=== PATIENT | female | born 1990 | race Caucasian/White ===

== ENCOUNTER 2017-02-07 09:28 | Emergency (ER) | payer BC, OTHER ==
[2017-02-07] MEDS ORDERED: Ketorolac 30 MG/ML SDV IM ONE (09:42)
--- NOTE | 2017-02-07 09:49 | EDM.PDOC ---
ED HPI GENERAL MEDICAL PROBLEM - General Chief Complaint: Lower Extremity Injury/Pain Stated Complaint: [id number] LEG PAIN LEFT BUMP Time Seen by Provider: 02/07/17 09:42 Source of Information: Reports: Patient, RN Notes Reviewed History Limitations: Reports: No Limitations - History of Present Illness INITIAL COMMENTS - FREE TEXT/NARRATIVE: she has a 26-year-old morbidly obese female who presents with left leg pain she states that it started 3-4 days ago and has gradually gotten worse. She states the pain is dull aching when she is sitting and with movement becomes sharp it starts in the left groin and radiates down the leg. She denies any injury she denies any fever or chills nausea or vomiting she denies the use of control or any recent long trips she rates her pain as 7/10 she has not taken anything for discomfort prior to arrival. She denies prior DVT Quality: Reports: Sharp Severity: Moderate Improves with: Reports: Rest Worsens with: Reports: Movement Left Upper Leg Pain Score (Numeric/FACES): 7 - Related Data Allergies Allergy/AdvReac Type Severity Reaction Status Date / Time cephalexin [From Keflex] Allergy Hives Verified 02/07/17 09:49 codeine Allergy Chills Verified 02/07/17 09:49 Penicillins Allergy Hives Verified 02/07/17 09:49 Home Meds: Home Meds . [No Known Home Meds] 02/07/17 [History] Review of Systems - Review of Systems Review Of Systems: ROS reveals no pertinent complaints other than HPI. Trauma Exam - Physical Exam Exam: See Below Exam Limited By: No Limitations General Appearance: Reports: Anxious, Other (tearful on exam) Head: Reports: Atraumatic, Normocephalic Respiratory Exam: Reports: No Respiratory Distress, Lungs Clear, Normal Breath Sounds Cardiovascular: Reports: Normal Peripheral Pulses, No Edema, No Gallop, No JVD, No Murmur, No Rub, Tachycardia GI/Abdominal: Reports: Normal Bowel Sounds, Soft, Non-Tender, No Organomegaly, No Distention, No Abnormal Bruit, No Mass Skin: Reports: Warm/Dry, Other (there is a small quarter size area of a healing abscess on the left upper inner thigh. There is no surrounding erythema induration fluctuance or drainage noted) Course - Vital Signs Last Recorded V/S: Last Vital Signs Temp 99 F 05/31/17 09:41 Pulse 144 H 02/07/17 09:41 Resp 16 02/07/17 09:41 BP 135/87 02/07/17 09:41 Pulse Ox 99 02/07/17 09:41 - Orders/Labs/Meds Orders: Active Orders 24 hr Category Date Time Status Venous Doppler Lwr Ext Lt [US] Urgent Exams 02/07/17 09:41 Ordered BASIC METABOLIC PANEL,BMP [CHEM] Stat Lab 02/07/17 11:21 Ordered CBC WITH AUTO DIFF [HEME] Stat Lab 02/07/17 11:21 Ordered CULTURE BLOOD [BC] Stat Lab 02/07/17 11:21 Ordered CULTURE BLOOD [BC] Stat Lab 02/07/17 11:21 Ordered Blood Culture x2 Reflex Set [OM.PC] Stat Oth 02/07/17 11:21 Ordered Meds: Medications Discontinued Medications Generic Name Dose Route Start Last Admin Trade Name Freq PRN Reason Stop Dose Admin Hydrocodone Bitart/Acetaminophen 1 tab 02/07/17 10:50 02/07/17 10:55 [place] 325-10 Mg PO 02/07/17 10:51 1 tab ONETIME ONE Administration Ketorolac Tromethamine 60 mg 02/07/17 09:42 02/07/17 09:57 Toradol IM 02/07/17 09:43 60 mg ONETIME ONE Administration - Radiology Interpretation Free Text/Narrative:: Doppler of the left lower leg was examined patient was given Toradol 60 mg IM for pain - Re-Assessments/Exams Free Text/Narrative Re-Assessment/Exam: 02/07/17 11:21 Patient had doppler of the left lower extremity which was negative for DVT and abscess- there were many inguinal nodes present. Patient made aware and will have cbc/ cmp/ blood cultures taken- patient given crutches for comfort and diclofenac for discomfort and told tfollowup with primary care in the next 3-5 days for reevaluation. Patient was not discharged Departure - Departure Time of Disposition: 11:27 Disposition: Home, Self-Care 01 Condition: good Clinical Impression: Lymphadenitis, acute, Left leg pain - Discharge Information Instructions: Lymphadenopathy Forms: ED Department Discharge Additional Instructions: discharge diagnoses Lymphadenopathy Leg pain Take antibiotics until gone Use crutches for comfort Follow up with the Clinic on Sunday and Return for increased pain/ fever or worsening symptoms. - My Orders Last 24 Hours: My Active Orders 02/07/17 09:41 Venous Doppler Lwr Ext Lt [US] Urgent 02/07/17 11:21 BASIC METABOLIC PANEL,BMP [CHEM] Stat CBC WITH AUTO DIFF [HEME] Stat CULTURE BLOOD [BC] Stat CULTURE BLOOD [BC] Stat Blood Culture x2 Reflex Set [OM.PC] Stat - Assessment/Plan Last 24 Hours: My Active Orders 02/07/17 09:41 Venous Doppler Lwr Ext Lt [US] Urgent 02/07/17 11:21 BASIC METABOLIC PANEL,BMP [CHEM] Stat CBC WITH AUTO DIFF [HEME] Stat CULTURE BLOOD [BC] Stat CULTURE BLOOD [BC] Stat Blood Culture x2 Reflex Set [OM.PC] Stat
[2017-02-07] MEDS ORDERED: Acetaminophen/HYDROcodone 325-10 MG Tab PO ONE (10:50)
[2017-02-07 11:31] VITALS: BP 107/63
--- NOTE | 2017-02-07 11:49 | US ---
CLINICAL HISTORY: 26-year-old morbidly obese female with upper left leg pain. Rule out DVT. INTERPRETATION: Technically "difficult" but negative examination, i.e., no current evidence deep vein thrombosis le ft groin, thigh or knee and the deep veins in the proximal left calf are patent (normal augmentation venous waveform). Multiple lymph nodes identified in the left groin. No sign of intraluminal thrombus and normal compressibility deep veins of the left groin, thigh and knee with satisfactory augmentation and venous waveforms demonstrated respectively in the left popli teal, superficial and common femoral veins proximally. No sign of Brock cyst behind the left knee. CONCLUSION: Lymphadenopathy left groin. No current evidence DVT left lower extremity.
[2017-02-07 12:06] LABS: CHLORIDE,CL 104 mmol/L (101-111); SODIUM,NA 135 mmol/L (135-145)
== END 2017-02-07 11:55 | disposition home or self-care (01) ==
LOC: DL.ED 09:28
DX: L04.3 Acute lymphadenitis of lower limb (principal); Z88.8 Allergy status to other drugs, medicaments and biological substances; Z88.5 Allergy status to narcotic agent; Z88.0 Allergy status to penicillin
CPT/HCPCS: 36415; 80048; 85025; 87040; 93971; 96372; 99284; A9270; J1885

== ENCOUNTER 2017-02-08 04:44 | Inpatient (IN) | payer OTHER ==
[2017-02-08] MEDS ORDERED: Sodium Chloride 0.9% 1,000 ML IV ONE (05:12)
[2017-02-08] MEDS ORDERED: Acetaminophen 325 MG Tab PO ONE (05:35)
[2017-02-08 05:36] LABS: CHLORIDE,CL 100 mmol/L (101-111); SODIUM,NA 133 mmol/L (135-145)
[2017-02-08] MEDS ORDERED: diphenhydrAMINE 25 MG Tab PO ONE (05:36)
[2017-02-08] MEDS ORDERED: Acetaminophen/HYDROcodone 325-10 MG Tab PO ONE (05:36)
[2017-02-08] MEDS ORDERED: Ondansetron 4 MG/2 ML SDV IV ONE (05:37)
[2017-02-08] MEDS ORDERED: Vancomycin 1.5 GM in Sodium Chloride 0.9% 500 ML IV ONE (05:37)
[2017-02-08] MEDS ORDERED: diphenhydrAMINE 50 MG/ML SDV IVPUSH ONE (05:41)
--- NOTE | 2017-02-08 05:49 | EDM.PDOC ---
ED HPI GENERAL MEDICAL PROBLEM - General Chief Complaint: Lower Extremity Injury/Pain Stated Complaint: LEG PAIN STILL PERSISTING Time Seen by Provider: 02/08/17 05:20 Source of Information: Reports: Patient History Limitations: Reports: No Limitations - History of Present Illness INITIAL COMMENTS - FREE TEXT/NARRATIVE: c/o lower left leg pain x 3 days with fever and chill. Patient seen in ED earlier today, LE ultrasound done to rule out DVT. None noted on report. Psoriatic patch left lower extremity since childhood, Stable in size until recently, increased redness, drainage this wallace. Pain in inside of leg increasing and red streaks noted from patch to knee. Temp 103 at home [employer]. Location: Reports: Lower Extremity, Left Left Upper Leg Pain Score (Numeric/FACES): 10 - Related Data Allergies Allergy/AdvReac Type Severity Reaction Status Date / Time cephalexin [From Keflex] Allergy Hives Verified 02/08/17 04:47 codeine Allergy Chills Verified 02/08/17 04:47 Penicillins Allergy Hives Verified 02/08/17 04:47 Home Meds: Home Meds Sulfamethoxazole/Trimethoprim [Bactrim Ds Tablet] 1 each PO ASDIRECTED 02/08/17 [History] Past Medical History HEENT History: Reports: None Cardiovascular History: Reports: None Respiratory History: Reports: None Gastrointestinal History: Reports: None Genitourinary History: Reports: None COUNSELLORS History: Reports: None Musculoskeletal History: Reports: None Neurological History: Reports: None Psychiatric History: Reports: None Endocrine/Metabolic History: Reports: None Hematologic History: Reports: None Immunologic History: Reports: None Oncologic (Cancer) History: Reports: None Dermatologic History: Reports: Psoriasis - Past Surgical History HEENT Surgical History: Reports: Other (See Below) Other HEENT Surgeries/Procedures: wisdom teeth Social & Family History - Tobacco Use Smoking Status *Q: Never Smoker - Caffeine Use Caffeine Use: Reports: None - Recreational Drug Use Recreational Drug Use: No Review of Systems - Review of Systems Review Of Systems: See Below Constitutional: Reports: Chills, Diaphoresis, Fever Eyes: Reports: No Symptoms Ears: Reports: No Symptoms Nose: Reports: No Symptoms Mouth/Throat: Reports: No Symptoms Respiratory: Reports: Shortness of Breath Cardiovascular: Reports: No Symptoms GI/Abdominal: Reports: Nausea Genitourinary: Reports: No Symptoms, Other (LMP 1 week ago) Musculoskeletal: Reports: Leg Pain (left ) Skin: Reports: Erythema, Wound, Change in Color, Lumps, Urticaria Neurological: Reports: No Symptoms ED EXAM, GENERAL - Physical Exam Exam: See Below Exam Limited By: No Limitations General Appearance: Alert, Anxious, Mild Distress Eye Exam: Bilateral Eye: EOMI, PERRL Ears: Normal External Exam Nose: Normal Inspection Throat/Mouth: Normal Inspection, Other (crusted lesion above mid upper lip) Head: Atraumatic, Normocephalic Neck: Normal Inspection, Full Range of Motion Respiratory/Chest: No Respiratory Distress Cardiovascular: Normal Peripheral Pulses, Regular Rate, Rhythm, Tachycardia GI/Abdominal: Normal Bowel Sounds, Soft, Non-Tender Extremities: Leg Pain (left greaterlower) Neurological: Alert, Oriented Skin Exam: Warm, Dry, Increased Warmth, Wound/Incision (6x7cm psoriatic patch with surrounding redness and warmth, central lesion raised tender, red streaking on medial leg to knee. tender with lymphadenopathy inner thigh and groin. helaing dermal cyst upper inner thigh). No: Normal Color Course - Vital Signs Last Recorded V/S: Last Vital Signs Temp 98.0 F 02/08/17 04:48 Pulse 119 H 02/08/17 05:06 Resp 18 02/08/17 05:06 BP 127/70 02/08/17 05:06 Pulse Ox 97 02/08/17 05:06 - Orders/Labs/Meds Orders: Active Orders 24 hr Category Date Time Status CULTURE WOUND [RM] Stat Lab 02/08/17 05:33 Received Vancomycin 1.5 gm Med 02/08/17 05:37 Active Sodium Chloride 0.9% [Normal Saline] 500 ml IV ONETIME Medication Orders Vancomycin HCl 1.5 gm/ Sodium (Chloride) 500 mls @ 334 mls/hr IV ONETIME ONE Stop: 02/08/17 07:06 Last Admin: 02/08/17 05:57 Dose: 334 mls/hr Labs: Laboratory Tests 02/08/17 02/08/17 02/08/17 Range/Units 05:11 05:11 05:11 WBC 16.7 H (5.0-10.0) 10^3/uL RBC 4.47 (4.2-5.4) 10^6/uL Hgb 12.3 (12.0-16.0) g/dL Hct 36.2 L (37.0-47.0) % MCV 81.0 (80-100) fL MCH 27.5 (27.0-34.0) pg MCHC 34.0 (33.0-35.0) g/dL Plt Count 244 (150-450) 10^3/uL Neut % (Auto) 92.3 H (42.2-75.2) % Lymph % (Auto) 4.1 L (20.5-50.1) % [place] % (Auto) 3.3 (2-8) % Eos % (Auto) 0.2 L (1.0-3.0) % Baso % (Auto) 0.1 (0.0-1.0) % Sodium 133 L (135-145) mmol/L Potassium 3.8 (3.6-5.0) mmol/L Chloride 100 L (101-111) mmol/L Carbon Dioxide 23.0 (21.0-31.0) mmol/L Anion Gap 13.8 BUN 15 (7-18) mg/dL Creatinine 1.1 (0.6-1.3) mg/dL Est Cr Clr Drug Dosing TNP Estimated GFR (MDRD) > 60 BUN/Creatinine Ratio 13.63 Glucose 128 H (74-105) mg/dL Lactic Acid 1.0 (0.5-2.2) mmol/L Calcium 9.3 (8.4-10.2) mg/dl Total Bilirubin 0.8 (0.2-1.0) mg/dL AST 26 (10-42) IU/L ALT 23 (10-60) IU/L Alkaline Phosphatase 49 (42-121) IU/L Total Protein 7.6 (6.7-8.2) g/dl Albumin 4.1 (3.2-5.5) g/dl Globulin 3.5 Albumin/Globulin Ratio 1.17 Meds: Medications Generic Name Dose Route Start Last Admin Trade Name Freq PRN Reason Stop Dose Admin Vancomycin HCl 1.5 gm/ Sodium 500 mls @ 334 mls/hr 02/08/17 05:37 02/08/17 05 :57 Chloride IV 02/08/17 07:06 334 mls/hr ONETIME ONE Administration Discontinued Medications Generic Name Dose Route Start Last Admin Trade Name Freq PRN Reason Stop Dose Admin Acetaminophen 325 mg 02/08/17 05:35 02/08/17 05:59 Tylenol PO 02/08/17 05:36 325 mg NOW ONE Administration Hydrocodone Bitart/Acetaminophen 1 tab 02/08/17 05:36 02/08/17 05:59 [place] 325-10 Mg PO 02/08/17 05:37 1 tab ONETIME ONE Administration Diphenhydramine HCl 25 mg 02/08/17 05:36 Benadryl PO 02/08/17 05:37 ONETIME ONE Diphenhydramine HCl 25 mg 02/08/17 05:41 02/08/17 05:54 Benadryl IVPUSH 02/08/17 05:42 25 mg ONETIME ONE Administration Sodium Chloride 1,000 mls @ 999 mls/hr 02/08/17 05:12 02/08/17 05:13 Normal Saline IV 02/08/17 06:12 999 mls/hr .BOLUS ONE Administration Ondansetron HCl 4 mg 02/08/17 05:37 02/08/17 05:55 Zofran IV 02/08/17 05:38 4 mg ONETIME ONE Administration - Re-Assessments/Exams Free Text/Narrative Re-Assessment/Exam: 02/08/17 06:[address] Bowers. Accepting of patient for further eval and management of cellulitis left lower extremity. Departure - Departure Time of Disposition: 06:36 Disposition: Admitted As Inpatient 68 Condition: fair Clinical Impression: Psoriasis Cellulitis of lower extremity Qualifiers: Laterality: left Qualified Code(s): L03.116 - Cellulitis of left lower limb - Discharge Information Forms: ED Department Discharge - My Orders Last 24 Hours: My Active Orders 02/08/17 05:33 CULTURE WOUND [RM] Stat 02/08/17 05:37 Vancomycin 1.5 gm Sodium Chloride 0.9% [Normal Saline] 500 ml IV ONETIME - Assessment/Plan Last 24 Hours: My Active Orders 02/08/17 05:33 CULTURE WOUND [RM] Stat 02/08/17 05:37 Vancomycin 1.5 gm Sodium Chloride 0.9% [Normal Saline] 500 ml IV ONETIME
[2017-02-08] MEDS ORDERED: Ondansetron 4 MG/2 ML SDV IV PRN (06:37)
[2017-02-08] MEDS ORDERED: Morphine 2 MG/ML Syringe IVPUSH PRN (06:37)
[2017-02-08] MEDS ORDERED: Sodium Chloride 0.9% 1,000 ML IV SCH (06:45)
[2017-02-08] MEDS: Sodium Chloride 0.9% 1,000 ML IV SCH ×2 (08:30→19:46)
--- NOTE | 2017-02-08 10:35 | HP ---
CHIEF COMPLAINT: Left leg pain and swelling. HISTORY OF PRESENT ILLNESS: Ms. Car Thrasher is a 26-year-old female with no significant past medical history. The patient began to experience redness of the left lower extremity 4 days ago. It got worse over time. She started having associated fever. Temperature at home was up to 103 associated with chills. No associated nausea or vomiting. No diarrhea, abdominal pain, dysuria, frequency, or micturition. No cough, no wheezing. The patient came to the emergency room was evaluated by the nurse practitioner and sent home on oral Bactrim. She was seen on the February 07, 2017. On getting back home, she was not feeling better. The area of redness has increased. She developed reddish streaks going up the left lower extremity. She decided to come back to the emergency room. On arrival, she was tachycardic. Her temperature was down to 99. Heart rate goes up above 130 per minute. With intravenous fluids, her heart rate came down to about 110. White cell count is elevated at 15.7. REVIEW OF SYSTEMS: Constitutional, cardiac, respiratory, gastrointestinal, genitourinary, neurologic, psychiatric, endocrine, allergy, immunology, hematology, oncology reviewed. No other pertinent findings except as noted above. SOCIAL HISTORY: Does not smoke. No alcohol use. FAMILY HISTORY: Reviewed and considered unremarkable. PAST MEDICAL HISTORY: None of notes. OBJECTIVE: Vital Signs: Heart rate is now 110 per minute. Earlier it was 130. Temperature 99. General: Alert, oriented to place, time, and person. Head: Atraumatic and normocephalic. Ear, Nose, and Throat: Unremarkable. Neck: Supple. Chest: Good air entry bilaterally. CVS: Regular rate and rhythm. Abdomen: Soft and nontender. Extremities: Swelling and redness. Superficial skin excoriation. Little bit of weeping. Endocrine: No thyromegaly. Psychiatric: Judgment and insight are good. Genitourinary: No costovertebral angle tenderness. LABORATORY DATA: White cell count is 15.7. Yesterday, it was 15.4. ASSESSMENT: 1. cellulitis of the left lower extremity. She presented with swelling, redness, and tenderness in the left lower extremity. 2. Possible sepsis. She is tachycardic and has leukocytosis white count of 15.7. No longer febrile at this time but prior to arrival her temperature was said to be 103. 3. Possible lymphangitis in the left lower extremity. PLAN: 1. Admit the patient to medical floor. 2. Start intravenous fluid bolus given in the emergency room. 3. Maintain the patient on normal saline run at 125 mL an hour. 4. Tylenol. 5. Blood culture was obtained on the February 07, 2017. 6. Intravenous vancomycin 1 g every 12 hours. 7. Monitor the vancomycin level. 8. Intravenous Zofran for control of nausea. 9. Intravenous morphine 2 mg every 4 hours p.r.n. Chart reviewed. Discussed with emergency room physician logging assistant. [facility] /[id number] DENYS
[2017-02-08] MEDS: Heparin Sodium 5,000 Units/ML Vial SUBCUT SCH ×2 (14:31→21:33)
[2017-02-08] MEDS: Acetaminophen 325 MG Tab PO PRN ×2 (15:57→22:02)
[2017-02-08] MEDS: diphenhydrAMINE 25 MG Tab PO PRN (21:32)
[2017-02-09] MEDS: Sodium Chloride 0.9% 1,000 ML IV SCH (05:02)
[2017-02-09] MEDS: Heparin Sodium 5,000 Units/ML Vial SUBCUT SCH ×3 (05:37→21:49)
[2017-02-09 07:02] LABS: CHLORIDE,CL 105 mmol/L (101-111); SODIUM,NA 136 mmol/L (135-145)
[2017-02-09] MEDS: diphenhydrAMINE 25 MG Tab PO PRN ×3 (08:21→20:29)
[2017-02-09] MEDS: Acetaminophen 325 MG Tab PO PRN ×3 (09:12→21:48)
--- NOTE | 2017-02-09 14:39 | PN ---
DATE: 02/09/2017 SUBJECTIVE: Ms. Anna Marie Siddiqui is a 26-year-old female with medical history significant for psoriasis and chronic skin changes on the left lower extremity presented to the hospital with complaints of nonhealing cellulitis and failed outpatient treatment, started on IV antibiotics. She was noted to have possible sepsis at the time of admission. For the past 24 hours, the patient continues to have pain to the left lower extremity, 2 to 3/10 in intensity, aggravated on movement and ambulation, relieved with pain medication, nonradiating type of pain, not associated with any nausea or vomiting. She had some mild chest pains yesterday and she attributes them to musculoskeletal pain as she was trying to get in and out of the bed. She denies any nausea or vomiting. She denies any shortness of breath. She denies any fevers or chills in the last 24 hours. Normal bowel habits. REVIEW OF SYSTEMS: Cardiovascular, respiratory, gastrointestinal, neurology, constitutional were all evaluated. PHYSICAL EXAMINATION: Vital signs: Temperature of 97.9, pulse of 96, blood pressure 113/70, respiratory rate of 20, and saturating at 100% on room air. General Appearance: Patient is well oriented to time, place, and person. Follows commands spontaneously. Cardiovascular System: S1, S2 heard with normal intensity. No gallops. Respiratory: Clear to auscultation bilaterally. No wheeze. No crepitations. Abdomen: Soft. Bowel sounds positive. Nontender. No rigidity. Extremities: Cellulitis noted on the left lower extremity with skin changes consistent with psoriasis in the past. Pulses felt well. Neurology: No gross focal neurological deficits. LABORATORY DATA: WBC 7.4, hemoglobin 11.3, hematocrit 34.6, and platelet count 224. Sodium 136, potassium 4.5, chloride 105, bicarb 24, BUN 6, creatinine 0.9, glucose 93, and calcium 8.5. MEDICATIONS: Reviewed: 1. Continue with Tylenol 650 every 6 hours as needed for pain and fever. 2. Azactam 1 g IV q.12 hourly. 3. Benadryl 25 mg 4 times a day as needed for itching. 4. Heparin 5000 units subcutaneous q.8 hourly. 5. Morphine 2 mg IV q.4 hourly for pain. 6. Zofran 4 mg IV q.6 hourly. 7. Vancomycin, pharmacy to dose. ASSESSMENT: 1. Cellulitis with sepsis. 2. Psoriasis. PLAN: 1. Cellulitis with sepsis. The patient was admitted with cellulitis and sepsis. At the time of admission, her lactic acid seems to be in normal ranges. She remains afebrile in the last 24 hours, though she continues to have lymphangitis. She had an MRI scan of the left lower extremity done yesterday which did not show any deep-seated abscess. She was noted to have edema and tissue swelling. We will add Azactam at this time in addition to vancomycin and we will repeat labs in the morning. Closely follow. The patient is encouraged to keep her left lower extremity elevated to decrease the swelling. We will continue with pain medications as needed. 2. DVT prophylaxis. Continue with heparin for DVT prophylaxis. 3. We discussed with family members at bedside. 4. Discussed with Dr. Maddox regarding the plan of care. [facility] /[id number]
[2017-02-10] MEDS: Sodium Chloride 0.9% 1,000 ML IV SCH (03:29)
[2017-02-10] MEDS: diphenhydrAMINE 25 MG Tab PO PRN ×3 (05:17→22:07)
[2017-02-10] MEDS: Heparin Sodium 5,000 Units/ML Vial SUBCUT SCH ×3 (06:01→22:07)
[2017-02-10] MEDS: Acetaminophen 325 MG Tab PO PRN ×2 (06:03→13:23)
[2017-02-10 06:25] LABS: CHLORIDE,CL 107 mmol/L (101-111); SODIUM,NA 138 mmol/L (135-145)
[2017-02-10] MEDS: Sodium Chloride 0.9% 10 ML Syringe FLUSH PRN ×3 (08:47→21:18)
--- NOTE | 2017-02-10 09:28 | PN ---
DATE: 02/10/2017 SUBJECTIVE: The patient is a 26-year-old lady who was admitted because of cellulitis of the left leg. The patient is feeling much better, and the redness on the left leg has improved. The patient denies any fever, chills, or any significant pain. Wound culture showed Staphylococcus aureus susceptible to vancomycin and most antibiotics, but resistant to penicillin. OBJECTIVE: Vital Signs: Blood pressure is 88/44, pulse of 64, respirations 20, and temperature of 97.4. Heart: Regular rate and rhythm. Normal S1 and S2. No gallops. No rubs. Lungs: Equal bilaterally. No crackles. No wheezing. Abdomen: Soft and nontender. Bowel sounds are positive. Extremities: Remarkable for the cellulitic patch on the left lower leg, but the redness and swelling have improved. MEDICATIONS: Reviewed. PLAN: We will continue with her vancomycin and aztreonam, and if she continues to do well, anticipate discharge in a.m., and we will change this to oral medication. We will also discontinue her IV fluids. [facility] /[id number]
[2017-02-11] MEDS: diphenhydrAMINE 25 MG Tab PO PRN (06:08)
[2017-02-11] MEDS: Heparin Sodium 5,000 Units/ML Vial SUBCUT SCH (06:08)
[2017-02-11] MEDS: Sodium Chloride 0.9% 10 ML Syringe FLUSH PRN (06:37)
[2017-02-11 07:19] VITALS: BP 89/36
--- NOTE | 2017-02-11 08:59 | PN ---
DATE: 02/11/2017 SUBJECTIVE: The patient continues to do well and cellulitis on the left lower leg has improved significantly and she would like to go home. The patient denies any fever, chills, chest pain, shortness of breath, abdominal pain, or any other complaints. OBJECTIVE: Vital Signs: Stable. Heart: Regular rate and rhythm. Normal S1 and S2. No gallops. No rubs. Lungs: Equal bilaterally. No crackles. No wheezing. Abdomen: Soft and nontender. Bowel sounds positive. Extremities: Remarkable for the psoriatic patch on the lateral aspect of the left lower leg, but the erythema has improved significantly. PLAN: We will discharge the patient home today. We will continue with oral antibiotics with doxycycline 100 mg b.i.d. for the next 7 days and I will have her follow up with Dr. Mcmahon in 7 to 10 days. [facility] /[id number]
--- NOTE | 2017-02-12 07:17 | DISCH ---
FINAL DIAGNOSES: 1. Cellulitis of the left leg. 2. Systemic inflammatory response syndrome. 3. Psoriasis. BRIEF HISTORY OF PRESENT ILLNESS: Please see H and P. HOSPITAL COURSE: The patient was admitted to General Medicine floor. The patient was given IV antibiotics including vancomycin and later on Azactam was also added because the patient was not improving that fast. A wound culture was sent and this showed Staphylococcus aureus susceptible to most antibiotics except for penicillin and the rest of the hospital course was unremarkable, and she did well and she was subsequently discharged. CONDITION ON DISCHARGE: Improved. Follow up with Dr. Mcmahon in 7 to 10 days. [facility] /[id number]
== END 2017-02-11 10:30 | disposition home or self-care (01) | DRG 603 ==
LOC: DL.ED 04:44 → DL.MS 06:40 → UNDOADMIN 06:40 → DL.MS 07:13
PROVIDERS: ADMIT Hospitalist; ATTEND Hospitalist
DX: L03.116 Cellulitis of left lower limb (principal); L40.9 Psoriasis, unspecified; A49.01 Methicillin susceptible Staphylococcus aureus infection, unspecified site; Z16.11 Resistance to penicillins
CPT/HCPCS: 36415; 73718-LT; 80048; 80053; 80202; 83605; 84703; 85025; 85027; 87070; 87077; 87186; 96361; 96374; 96375; 99283; A9270-GY; J1200; J1644; J2405; J3370; J7030; J7040; J7050; S0073

== ENCOUNTER 2017-02-13 19:49 | Emergency (ER) | payer OTHER ==
[2017-02-13 20:47] VITALS: BP 120/78
--- NOTE | 2017-02-13 21:30 | EDM.PDOC ---
ED HPI GENERAL MEDICAL PROBLEM - General Chief Complaint: Lower Extremity Injury/Pain Stated Complaint: ANKLE INJURY Time Seen by Provider: 02/13/17 21:30 Source of Information: Reports: Patient History Limitations: Reports: No Limitations - History of Present Illness INITIAL COMMENTS - FREE TEXT/NARRATIVE: This 26 yo female patient reports to the ED with right ankle pain due to an injury at softball just prior to coming to the ED. Onset: Today Duration: Minutes: Location: Reports: Lower Extremity, Right Quality: Reports: Ache, Dull Severity: Moderate Improves with: Reports: Rest Worsens with: Reports: Movement Associated Symptoms: Reports: No Other Symptoms Right Ankle Pain Score (Numeric/FACES): 5 - Related Data Allergies Allergy/AdvReac Type Severity Reaction Status Date / Time cephalexin [From Keflex] Allergy Hives Verified 02/08/17 04:47 codeine Allergy Chills Verified 02/08/17 04:47 Penicillins Allergy Hives Verified 02/08/17 04:47 Home Meds: Home Meds Acetaminophen 650 mg PO Q6H PRN 02/08/17 [History] Doxycycline [Vibramycin] 100 mg PO BID 7 Days 02/11/17 [Rx] Past Medical History HEENT History: Reports: None Cardiovascular History: Reports: None Respiratory History: Reports: None Gastrointestinal History: Reports: Other (See Below) 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, resolved Genitourinary History: Reports: None 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 Musculoskeletal History: Reports: Fracture Neurological History: Reports: None Psychiatric History: Reports: Anxiety Endocrine/Metabolic History: Reports: None Hematologic History: Reports: None Immunologic History: Reports: None Oncologic (Cancer) History: Reports: None Dermatologic History: Reports: Cellulitis, Eczema, Psoriasis - Infectious Disease History Infectious Disease History: Reports: Chicken Pox - Past Surgical History HEENT Surgical History: Reports: Other (See Below) Other HEENT Surgeries/Procedures: wisdom teeth Cardiovascular Surgical History: Reports: None GI Surgical History: Reports: EGD Musculoskeletal Surgical History: Reports: None Dermatological Surgical History: Reports: Skin Biopsy Social & Family History - Family History Family Medical History: Noncontributory - Tobacco Use Smoking Status *Q: Unknown Ever Smoked Second Hand Smoke Exposure: No - Caffeine Use Caffeine Use: Reports: None - Recreational Drug Use Recreational Drug Use: No Review of Systems - Review of Systems Review Of Systems: ROS reveals no pertinent complaints other than HPI. ED EXAM, GENERAL - Physical Exam Exam: See Below Exam Limited By: No Limitations General Appearance: Alert, WD/WN, Mild Distress Eye Exam: Bilateral Eye: EOMI, Normal Inspection Ears: Normal External Exam Nose: Normal Inspection, Normal Mucosa, No Blood Throat/Mouth: Normal Voice, No Airway Compromise Head: Atraumatic, Normocephalic Neck: Full Range of Motion Respiratory/Chest: No Respiratory Distress, Lungs Clear, Normal Breath Sounds Cardiovascular: Normal Peripheral Pulses, Regular Rate, Rhythm (Female) Exam: Deferred Rectal (Female) Exam: Deferred Extremities: Normal Capillary Refill, Leg Pain (right medial and lateral ankle) , Limited Range of Motion (right ankle) Neurological: Alert, Oriented, CN II-XII Intact, Normal Cognition, Normal Gait, Normal Reflexes, No Motor/Sensory Deficits Psychiatric: Normal Affect, Normal Mood Skin Exam: Warm, Dry, Intact, Normal Color, No Rash Lymphatic: No Adenopathy Course - Vital Signs Last Recorded V/S: Last Vital Signs Temp 36.6 C 02/13/17 20:44 Pulse 103 H 02/13/17 20:44 Resp 20 02/13/17 20:44 BP 120/78 02/13/17 20:44 Pulse Ox 100 02/13/17 20:44 - Orders/Labs/Meds Orders: Active Orders 24 hr Category Date Time Status DME for Discharge [COMM] Urgent Oth 02/13/17 21:27 Ordered Departure - Departure Time of Disposition: 21:28 Disposition: Home, Self-Care 01 Condition: fair Clinical Impression: Right ankle strain Qualifiers: Encounter type: initial encounter Qualified Code(s): S96.911A - Strain of unspecified muscle and tendon at ankle and foot level, right foot, initial encounter - Discharge Information Instructions: Ankle Sprain, [id number] Forms: ED Department Discharge Care Plan Goals: The patient was advised of the examination and x-ray results during the visit. The patient was placed in a sugar tong splint to support her right ankle. The patient reports she does have crutches at home. The patient should rest, ice and elevate her right lower extremity over the next 24 hours. If the patient has any additional symptoms or concerns, the patient should follow-up with her primary care facility or return to the emergency department. - My Orders Last 24 Hours: My Active Orders 02/13/17 21:27 DME for Discharge [COMM] Urgent - Assessment/Plan Last 24 Hours: My Active Orders 02/13/17 21:27 DME for Discharge [COMM] Urgent
== END 2017-02-13 21:34 | disposition home or self-care (01) ==
LOC: DL.ED 19:49
DX: S96.911A Strain of unspecified muscle and tendon at ankle and foot level, right foot, initial encounter (principal); F41.9 Anxiety disorder, unspecified; Z88.0 Allergy status to penicillin; Z88.5 Allergy status to narcotic agent; X58.XXXA Exposure to other specified factors, initial encounter; Y93.64 Activity, baseball; Z88.1 Allergy status to other antibiotic agents
CPT/HCPCS: 73610-RT; 99283

== ENCOUNTER 2019-12-30 07:21 | Emergency (ER) | payer OTHER ==
[2019-12-30 07:32] VITALS: BP 133/78; PULSE 118
--- NOTE | 2019-12-30 07:41 | EDM.PDOC ---
ED HPI GENERAL MEDICAL PROBLEM - General Chief Complaint: Abdominal Pain Stated Complaint: SEVERE BACK AND STOMACH PAIN Time Seen by Provider: 12/30/19 07:40 Source of Information: Reports: Patient, RN, RN Notes Reviewed History Limitations: Reports: No Limitations - History of Present Illness INITIAL COMMENTS - FREE TEXT/NARRATIVE: Patient presents to ER with complaint of right upper quadrant pain radiating up the right side, and into the back. Patient states it feels like a charley horse in her right upper back. Patient states she does have history of acid reflux and took Tums which did not help. Patient states the pain began last night after supper. Patient states last ate at 8:30 PM last night, spicy chicken breast. Patient denies any fever. States she does have chills with the pain. Patient states she does still have her gallbladder. Admits to nausea and small amounts of vomiting last night. Reports small episode of diarrhea last night, but none since then. 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, resolved Genitourinary History: Reports: None 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 Musculoskeletal History: Reports: Fracture Neurological History: Reports: None Psychiatric History: Reports: Anxiety Endocrine/Metabolic History: Reports: None Hematologic History: Reports: None Immunologic History: Reports: None Oncologic (Cancer) History: Reports: None Dermatologic History: Reports: Cellulitis, Eczema, Psoriasis - Infectious Disease History Infectious Disease History: Reports: Chicken Pox - Past Surgical History HEENT Surgical History: Reports: Other (See Below) Other HEENT Surgeries/Procedures: wisdom teeth Cardiovascular Surgical History: Reports: None GI Surgical History: Reports: EGD Musculoskeletal Surgical History: Reports: None Dermatological Surgical History: Reports: Skin Biopsy Social & Family History - Family History Family Medical History: Noncontributory - Caffeine Use Caffeine Use: Reports: None ED ROS GENERAL - Review of Systems Review Of Systems: Comprehensive ROS is negative, except as noted in HPI. ED EXAM, GI/ABD - Physical Exam Exam: See Below Exam Limited By: No Limitations General Appearance: Alert, WD/WN, Mild Distress Eyes: Bilateral: Normal Appearance, EOMI Ears: Normal External Exam, Hearing Grossly Normal Nose: Normal Inspection Throat/Mouth: Normal Inspection, Normal Voice, No Airway Compromise Head: Atraumatic, Normocephalic Neck: Normal Inspection, Supple, Non-Tender, Full Range of Motion Respiratory/Chest: No Respiratory Distress, Lungs Clear, Normal Breath Sounds, No Accessory Muscle Use, Chest Non-Tender Cardiovascular: Normal Peripheral Pulses, Regular Rate, Rhythm, No Edema, No Gallop, No JVD, No Murmur, No Rub GI/Abdominal Exam: Normal Bowel Sounds, Soft, No Organomegaly, No Distention, No Abnormal Bruit, No Mass, Pelvis Stable, Tender (RUQ) (Female) Exam: Deferred Rectal (Female) Exam: Deferred Back Exam: Normal Inspection, Full Range of Motion, NT Extremities: Normal Inspection, Normal Range of Motion, Non-Tender, Normal Capillary Refill, No Pedal Edema Neurological: Alert, Oriented, CN II-XII Intact, Normal Cognition, Normal Gait, Normal Reflexes, No Motor/Sensory Deficits Psychiatric: Normal Affect, Normal Mood Skin Exam: Warm, Dry, Intact, Normal Color, No Rash Lymphatic: No Adenopathy Course - Vital Signs Last Recorded V/S: Last Vital Signs Temp 97.2 F 12/30/19 07:28 Pulse 118 H 12/30/19 07:28 Resp 18 12/30/19 07:28 BP 133/78 12/30/19 07:28 Pulse Ox 100 12/30/19 07:28 - Orders/Labs/Meds Orders: Active Orders 24 hr Category Date Time Status Peripheral IV Care [RC] . DIRECTED Care 12/30/19 07:55 Active Sodium Chloride 0.9% [Saline Flush] Med 12/30/19 07:53 Active 10 ml FLUSH ASDIRECTED PRN Peripheral IV Insertion Adult [OM.PC] Stat Oth 12/30/19 07:53 Ordered Medication Orders Sodium Chloride (Saline Flush) 10 ml FLUSH ASDIRECTED PRN PRN Reason: Keep Vein Open Last Admin: 12/30/19 08:03 Dose: 10 ml Labs: Laboratory Tests 12/30/19 12/30/19 12/30/19 Range/Units 07:30 07:30 07:59 WBC 8.2 (5.0-10.0) 10^3/uL RBC 4.58 (4.2-5.4) 10^6/uL Hgb 12.9 D (12.0-16.0) g/dL Hct 38.2 (37.0-47.0) % MCV 83.4 (80-100) fL MCH 28.2 (27.0-34.0) pg MCHC 33.8 (33.0-35.0) g/dL Plt Count 285 (150-450) 10^3/uL Neut % (Auto) 65.9 (42.2-75.2) % Lymph % (Auto) 27.0 (20.5-50.1) % [place] % (Auto) 5.4 (2-8) % Eos % (Auto) 1.5 (1.0-3.0) % Baso % (Auto) 0.2 (0.0-1.0) % Sodium (136-145) mmol/L Potassium (3.5-5.1) mmol/L Chloride (98-107) mmol/L Carbon Dioxide (21-32) mmol/L Anion Gap (7-13) mEq/L BUN (7-18) mg/dL Creatinine (0.55-1.02) mg/dL Est Cr Clr Drug Dosing mL/min Estimated GFR (MDRD) BUN/Creatinine Ratio (No establ ref range) Glucose (74-99) mg/dL Calcium (8.5-10.1) mg/dL Total Bilirubin (0.2-1.0) mg/dL AST (15-37) U/L ALT (14-59) U/L Alkaline Phosphatase (46-116) U/L Total Protein (6.4-8.2) g/dL Albumin (3.4-5.0) g/dL Globulin Albumin/Globulin Ratio Amylase (25-115) U/L Lipase (73-393) U/L Urine Color Yellow (YELLOW) Urine Appearance Clear (CLEAR) Urine pH 5.5 (5.0-9.0) Ur Specific [place] >= 1.030 (1.005-1.030) Urine Protein Negative (NEGATIVE) Urine Glucose (UA) Negative (NEGATIVE) Urine Ketones Negative (NEGATIVE) Urine Occult Blood Negative (NEGATIVE) Urine Nitrite Negative (NEGATIVE) Urine Bilirubin Negative (NEGATIVE) Urine Urobilinogen 0.2 (0.2-1.0) mg/dL Ur Leukocyte Esterase Negative (NEGATIVE) Urine HCG, Qual Negative 12/30/19 Range/Units 07:59 WBC (5.0-10.0) 10^3/uL RBC (4.2-5.4) 10^6/uL Hgb (12.0-16.0) g/dL Hct (37.0-47.0) % MCV (80-100) fL MCH (27.0-34.0) pg MCHC (33.0-35.0) g/dL Plt Count (150-450) 10^3/uL Neut % (Auto) (42.2-75.2) % Lymph % (Auto) (20.5-50.1) % [place] % (Auto) (2-8) % Eos % (Auto) (1.0-3.0) % Baso % (Auto) (0.0-1.0) % Sodium 138 (136-145) mmol/L Potassium 3.9 (3.5-5.1) mmol/L Chloride 103 (98-107) mmol/L Carbon Dioxide 25 (21-32) mmol/L Anion Gap 13.9 H (7-13) mEq/L BUN 12 (7-18) mg/dL Creatinine 0.98 (0.55-1.02) mg/dL Est Cr Clr Drug Dosing 75.12 mL/min Estimated GFR (MDRD) > 60 BUN/Creatinine Ratio 12.2 (No establ ref range) Glucose 105 H (74-99) mg/dL Calcium 9.1 (8.5-10.1) mg/dL Total Bilirubin 0.3 (0.2-1.0) mg/dL AST 9 L (15-37) U/L ALT 20 (14-59) U/L Alkaline Phosphatase 57 (46-116) U/L Total Protein 7.2 (6.4-8.2) g/dL Albumin 3.8 (3.4-5.0) g/dL Globulin 3.4 Albumin/Globulin Ratio 1.1 Amylase 39 (25-115) U/L Lipase 118 (73-393) U/L Urine Color (YELLOW) Urine Appearance (CLEAR) Urine pH (5.0-9.0) Ur Specific [place] (1.005-1.030) Urine Protein (NEGATIVE) Urine Glucose (UA) (NEGATIVE) Urine Ketones (NEGATIVE) Urine Occult Blood (NEGATIVE) Urine Nitrite (NEGATIVE) Urine Bilirubin (NEGATIVE) Urine Urobilinogen (0.2-1.0) mg/dL Ur Leukocyte Esterase (NEGATIVE) Urine HCG, Qual Meds: Medications Generic Name Dose Route Start Last Admin Trade Name Freq PRN Reason Stop Dose Admin Sodium Chloride 10 ml 12/30/19 07:53 12/30/19 08:03 Saline Flush FLUSH 10 ml ASDIRECTED PRN Administration Keep Vein Open Discontinued Medications Generic Name Dose Route Start Last Admin Trade Name Freq PRN Reason Stop Dose Admin Al Hydroxide/Mg Hydroxide 30 ml 12/30/19 08:03 12/30/19 08:06 Gi Cocktail PO 12/30/19 08:04 30 ml ONETIME ONE Administration Departure - Departure Time of Disposition: 08:32 Disposition: Home, Self-Care 01 Condition: Good Clinical Impression: Abdominal pain Qualifiers: Abdominal location: right upper quadrant Qualified Code(s): R10.11 - Right upper quadrant pain GERD (gastroesophageal reflux disease) Qualifiers: Esophagitis presence: without esophagitis Qualified Code(s): K21.9 - Gastro- esophageal reflux disease without esophagitis - Discharge Information *PRESCRIPTION DRUG MONITORING PROGRAM REVIEWED*: No *COPY OF PRESCRIPTION DRUG MONITORING REPORT IN PATIENT JESUS: No Instructions: Indigestion, [id number], Food Choices for Gastroesophageal Reflux Disease, Adult, [id number], Gastroesophageal Reflux Disease, Adult, [id number] Forms: ED Department Discharge Additional Instructions: Drink water Stay away from coffee, tea, soda, spicy foods, greasy foods, alcohol, chocolate RX: Omeprazole Follow up with your primary care facility Sepsis Event Note - Evaluation Sepsis Screening Result: No Definite Risk - Focused Exam Vital Signs: Vital Signs Temp Pulse Resp BP Pulse Ox 12/30/19 07:28 97.2 F 118 H 18 133/78 100 Date Exam was Performed: 12/30/19 Time Exam was Performed: 08:32 - My Orders Last 24 Hours: My Active Orders 12/30/19 07:53 Sodium Chloride 0.9% [Saline Flush] 10 ml FLUSH ASDIRECTED PRN Peripheral IV Insertion Adult [OM.PC] Stat 12/30/19 07:55 Peripheral IV Care [RC] . DIRECTED - Assessment/Plan Last 24 Hours: My Active Orders 12/30/19 07:53 Sodium Chloride 0.9% [Saline Flush] 10 ml FLUSH ASDIRECTED PRN Peripheral IV Insertion Adult [OM.PC] Stat 12/30/19 07:55 Peripheral IV Care [RC] . DIRECTED
[2019-12-30] MEDS ORDERED: Sodium Chloride 0.9% 10 ML Syringe FLUSH PRN (07:53)
[2019-12-30] MEDS ORDERED: GI Cocktail Oral Solution 30 ML PO ONE (08:03)
[2019-12-30 08:24] LABS: ANION GAP 13.9 mEq/L (7-13); CHLORIDE,CL 103 mmol/L (98-107); SODIUM,NA 138 mmol/L (136-145)
== END 2019-12-30 08:38 | disposition home or self-care (01) ==
LOC: DL.ED 07:21
DX: K21.9 Gastro-esophageal reflux disease without esophagitis (principal); Z88.0 Allergy status to penicillin; Z88.5 Allergy status to narcotic agent; Z88.1 Allergy status to other antibiotic agents
CPT/HCPCS: 36415; 80053; 81003; 81025; 82150; 83690; 85025; 99284; A9270-GY

== ENCOUNTER 2022-10-31 16:12 | Emergency (ER) | payer OTHER ==
[2022-10-31] MEDS ORDERED: Ondansetron 4 MG Tab.DIS PO ONE (16:13)
[2022-10-31] MEDS ORDERED: Ondansetron 4 MG/2 ML SDV IVPUSH ONE (16:34)
[2022-10-31] MEDS ORDERED: Sodium Chloride 0.9% 10 ML Syringe FLUSH PRN (16:34)
[2022-10-31] MEDS ORDERED: Sodium Chloride 0.9% 1,000 ML IV ONE (16:34)
[2022-10-31 16:55] VITALS: BP 127/87; PULSE 97
[2022-10-31 17:21] LABS: ANION GAP 14.6 mEq/L (7-13)
[2022-10-31 17:44] LABS: CORONAVIRUS COVID-19 NAA NEGATIVE (NEGATIVE); RESPIRATORY SYNCYTIAL VIR NAA NEGATIVE (NEGATIVE)
[2022-10-31] MEDS ORDERED: Iopamidol 612 MG/ML 100 ML Bottle IVPUSH ONE (17:59)
[2022-10-31] MEDS ORDERED: Ondansetron 4 MG Tab.DIS ONE (18:59)
== END 2022-10-31 19:06 | disposition home or self-care (01) ==
LOC: DL.ED 16:12
DX: E88.89 Other specified metabolic disorders (principal); Z88.0 Allergy status to penicillin; Z88.1 Allergy status to other antibiotic agents; Z88.5 Allergy status to narcotic agent; Z20.822 Contact with and (suspected) exposure to COVID-19
CPT/HCPCS: 0241U; 36415; 74177; 80053; 81003; 81025; 82150; 83605; 83690; 83735; 84145; 85025; 86140; 96360; 99284; A9270; J2405; J3490; J7030; Q9967

== ENCOUNTER 2022-12-18 05:21 | Emergency (ER) | payer BC, OTHER ==
[2022-12-18 05:29] VITALS: BP 143/111; PULSE 85
[2022-12-18] MEDS ORDERED: HYDROmorphone 1 MG/ML Syringe IVPUSH ONE (05:47)
[2022-12-18] MEDS ORDERED: Ondansetron 4 MG/2 ML SDV IVPUSH ONE (05:47)
[2022-12-18 06:25] LABS: ANION GAP 15.7 mEq/L (7-13); CHLORIDE,CL 104 mmol/L (98-107); SODIUM,NA 141 mmol/L (136-145)
[2022-12-18 06:34] LABS: ESTIMATED GFR 81 mL/min (>=60)
== END 2022-12-18 09:15 ==
LOC: DL.ED 05:21
DX: K80.63 Calculus of gallbladder and bile duct with acute cholecystitis with obstruction (principal); Z88.1 Allergy status to other antibiotic agents; Z88.5 Allergy status to narcotic agent; Z88.0 Allergy status to penicillin
CPT/HCPCS: 36415; 76705; 80053; 81003; 82150; 83690; 83735; 84703; 85025; 86140; 96374; 99285; 99285-25; J1170; J2405

== ENCOUNTER 2024-01-30 00:14 | Emergency (ER) | payer OTHER ==
[2024-01-30 01:37] LABS: BASOPHILS PERCENT AUTO 0.2 % (0.0-1.0); EOSINOPHILS PERCENT AUTO 1.9 % (1.0-3.0); HEMATOCRIT 38.5 % (37.0-47.0); HEMOGLOBIN 12.9 g/dL (12.0-16.0); LYMPHOCYTES PERCENT AUTO 14.5 % (20.5-50.1); MEAN CORPUSCULAR HEMOGLOBIN 27.6 pg (27.0-34.0); MEAN CORPUSCULAR HGB CONC 33.5 g/dL (33.0-35.0); MEAN CORPUSCULAR VOLUME 82.4 fL (80-100); MONOCYTES PERCENT AUTO 5.3 % (2-8); NEUTROPHILS PERCENT AUTO 78.1 % (42.2-75.2); PLATELET COUNT,PLT 240 10^3/uL (150-450); RED BLOOD CELL COUNT 4.67 10^6/uL (4.2-5.4); WHITE BLOOD CELL COUNT,WBC 11.4 10^3/uL (5.0-10.0)
[2024-01-30] MEDS: Lactated Ringers 1,000 ML IV ONE ×2 (01:37→03:02)
[2024-01-30] MEDS: Orphenadrine 60 MG/2 ML Inj IV ONE (01:49)
[2024-01-30 01:57] LABS: A/G RATIO 0.9; ALANINE AMINOTRANSFERASE,ALT 20 U/L (14-59); ALBUMIN 3.5 g/dL (3.4-5.0); ALKALINE PHOSPHATASE 51 U/L (46-116); ANION GAP 13.8 mEq/L (7-13); ASPARTATE AMNIOTRANSFERASE,AST 9 U/L (15-37); BILIRUBIN TOTAL 0.2 mg/dL (0.2-1.0); BLOOD UREA NITROGEN,BUN 14 mg/dL (7-18); BUN/CREATININE RATIO 14.6 (No establ ref range); CARBON DIOXIDE,CO2 25 mmol/L (21-32); CHLORIDE,CL 105 mmol/L (98-107); CREATININE 0.96 mg/dL (0.55-1.02); GLUCOSE RANDOM 112 mg/dL (70-99); POTASSIUM,K 3.8 mmol/L (3.5-5.1); PROTEIN TOTAL,TP 7.4 g/dL (6.4-8.2); SODIUM,NA 140 mmol/L (136-145)
[2024-01-30 01:58] LABS: ESTIMATED GFR 81 mL/min (>=60)
[2024-01-30] MEDS: fentaNYL 100 MCG/2 ML SDV IVPUSH ONE (02:54)
[2024-01-30 04:08] LABS: APPEARANCE,URINE SLIGHTLY CLOUDY (CLEAR); BILIRUBIN,URINE NEGATIVE (NEGATIVE); COLOR,URINE PINK (YELLOW); GLUCOSE,URINE NEGATIVE (NEGATIVE); KETONES,URINE NEGATIVE (NEGATIVE); LEUKOCYTE ESTERASE,URINE NEGATIVE (NEGATIVE); NITRITE,URINE NEGATIVE (NEGATIVE); OCCULT BLOOD,URINE LARGE (NEGATIVE); PH,URINE 8.5 (5.0-9.0); PROTEIN,URINE NEGATIVE (NEGATIVE); UROBILINOGEN,URINE 0.2 mg/dL (0.2-1.0)
[2024-01-30 04:18] LABS: BACTERIA,URINE OCCASIONAL /HPF (0-FEW/HPF); EPITHELIAL CELLS,URINE FEW /HPF (NOT SEEN); RBC,URINE >100 /HPF (0-5); WBC,URINE 0-5 /HPF (0-5/HPF)
[2024-01-30 04:27] VITALS: BP 109/62; PULSE 74
== END 2024-01-30 04:53 | disposition home or self-care (01) ==
LOC: DL.ED 00:14
DX: O03.9 Complete or unspecified spontaneous abortion without complication (principal); Z88.0 Allergy status to penicillin; Z88.1 Allergy status to other antibiotic agents; Z88.5 Allergy status to narcotic agent
CPT/HCPCS: 36415; 80053; 81001; 84702; 85025; 96361; 96374; 96375; 99284; 99284-25; J2360; J3010; J7120

== ENCOUNTER 2024-06-08 22:28 | Emergency (ER) | payer OTHER ==
[2024-06-08 23:09] VITALS: BP 151/108; PULSE 113
[2024-06-08 23:26] LABS: APPEARANCE,URINE CLEAR (CLEAR); BILIRUBIN,URINE NEGATIVE (NEGATIVE); COLOR,URINE LIGHT YELLOW (YELLOW); GLUCOSE,URINE NEGATIVE (NEGATIVE); KETONES,URINE NEGATIVE (NEGATIVE); LEUKOCYTE ESTERASE,URINE TRACE (NEGATIVE); NITRITE,URINE NEGATIVE (NEGATIVE); OCCULT BLOOD,URINE SMALL (NEGATIVE); PH,URINE 6.5 (5.0-9.0); PROTEIN,URINE NEGATIVE (NEGATIVE); UROBILINOGEN,URINE 0.2 mg/dL (0.2-1.0)
[2024-06-08 23:37] LABS: BACTERIA,URINE FEW /HPF (0-FEW/HPF); EPITHELIAL CELLS,URINE FEW /HPF (NOT SEEN); RBC,URINE 0-5 /HPF (0-5)
== END 2024-06-09 01:08 | disposition home or self-care (01) ==
LOC: DL.ED 22:28
DX: O20.9 Hemorrhage in early pregnancy, unspecified (principal); E66.9 Obesity, unspecified; Z68.42 Body mass index [BMI] 45.0-49.9, adult; Z90.49 Acquired absence of other specified parts of digestive tract; Z88.0 Allergy status to penicillin; Z88.5 Allergy status to narcotic agent; Z88.1 Allergy status to other antibiotic agents; Z3A.09 9 weeks gestation of pregnancy
CPT/HCPCS: 36415; 81001; 84702; 87086; 99283; 99284

== ENCOUNTER 2024-12-30 07:32 | Inpatient (IN) | payer OTHER ==
[2024-12-30] MEDS ORDERED: Methylergonovine 0.2 MG/1 ML Amp IM PRN (20:02)
[2024-12-30] MEDS ORDERED: Carboprost Tromethamine 250 MCG/1 ML Amp IM PRN (20:02)
[2024-12-30] MEDS ORDERED: Misoprostol 100 MCG Tab RECTAL PRN (20:02)
[2024-12-30] MEDS ORDERED: Sodium Chloride 0.9% 10 ML Syringe FLUSH PRN (20:02)
[2024-12-30] MEDS ORDERED: Oxytocin/Normal Saline 30 UNIT/500 ML BAG IV SCH (20:15)
[2024-12-31] MEDS: Misoprostol 50 MCG (1/2 of 100 MCG) Tab PO PRN (01:29)
[2024-12-31 02:28] LABS: HEMATOCRIT 37.8 % (37.0-47.0); HEMOGLOBIN 12.6 g/dL (12.0-16.0); MEAN CORPUSCULAR HEMOGLOBIN 28.1 pg (27.0-34.0); MEAN CORPUSCULAR HGB CONC 33.3 g/dL (33.0-35.0); MEAN CORPUSCULAR VOLUME 84.4 fL (80-100); RED BLOOD CELL COUNT 4.48 10^6/uL (4.2-5.4); WHITE BLOOD CELL COUNT,WBC 12.3 10^3/uL (5.0-10.0)
[2024-12-31] MEDS: Misoprostol 50 MCG (1/2 of 100 MCG) Tab PO SCH (09:55)
[2024-12-31] MEDS: Lactated Ringers 1,000 ML IV ONE (12:40)
[2024-12-31] MEDS: Oxytocin/Lactated Ringers 30 UNIT/500 ML BAG IV SCH (13:45)
[2024-12-31] MEDS ORDERED: Phenylephrine HCl In 0.9% NaCl 1 MG/10 ML Syringe IVPUSH PRN (14:19)
[2024-12-31] MEDS ORDERED: ePHEDrine 50 MG/ML SDV IVPUSH PRN (14:19)
[2024-12-31] MEDS ORDERED: Ropivacaine 200 MG in Premix Bag 1 BAG EPIDUR SCH (14:30)
[2024-12-31] MEDS: Acetaminophen 325 MG Tab PO PRN (16:31)
[2024-12-31 17:49] LABS: CREATININE,URINE RAND 273.36 mg/dL (No establ ref range); PROTEIN CREATININE RATIO,URINE 112.3 mg/g (<150.0); PROTEIN,URINE RANDOM 30.7 mg/dL (0.0-11.9)
[2024-12-31] MEDS: Lactated Ringers 1,000 ML IV SCH (23:21)
[2025-01-01] MEDS: Ondansetron 4 MG/2 ML SDV IVPUSH PRN (00:37)
[2025-01-01] MEDS ORDERED: Lidocaine 2% with EPINEPHrine 1:200,000 20 ML SDV ONE (02:43)
[2025-01-01] MEDS ORDERED: fentaNYL 100 MCG/2 ML SDV ONE (02:54)
[2025-01-01] MEDS: Tranexamic Acid 1,000 MG in Sodium Chloride 0.9% 100 ML IV PRN (07:35)
[2025-01-01] MEDS: Misoprostol 100 MCG Tab RECTAL PRN (07:35)
[2025-01-01] MEDS ORDERED: Sodium Chloride 0.9% 10 ML Syringe FLUSH PRN (08:04)
[2025-01-01] MEDS ORDERED: Oxytocin 10 Units/1 ML SDV IM PRN (08:04)
[2025-01-01] MEDS: Docusate Sodium 100 MG Cap PO PRN (08:36)
[2025-01-01] MEDS: Acetaminophen 325 MG Tab PO PRN ×2 (08:36→12:35)
[2025-01-01] MEDS: Benzocaine/Menthol 20%-0.5% Spray 78 GM Cannister TOP PRN (10:11)
[2025-01-01] MEDS: Witch Hazel Medicated Pads 100/Jar TOP PRN (10:12)
[2025-01-01] MEDS: Ibuprofen 800 MG Tab PO SCH (10:55)
[2025-01-01] MEDS: Prenatal Multivitamin with Calcium/Folic Acid/Iron Tab PO SCH (10:56)
[2025-01-01] MEDS: Lidocaine 1% 30 ML SDV INJECT ONE (11:34)
[2025-01-02 08:30] LABS: HEMATOCRIT 32.9 % (37.0-47.0); HEMOGLOBIN 10.5 g/dL (12.0-16.0); MEAN CORPUSCULAR HEMOGLOBIN 27.7 pg (27.0-34.0); MEAN CORPUSCULAR HGB CONC 31.9 g/dL (33.0-35.0); MEAN CORPUSCULAR VOLUME 86.8 fL (80-100); RED BLOOD CELL COUNT 3.79 10^6/uL (4.2-5.4); WHITE BLOOD CELL COUNT,WBC 10.7 10^3/uL (5.0-10.0)
[2025-01-02] MEDS: Ferrous Sulfate 325 MG Tab PO SCH (09:20)
[2025-01-02] MEDS ORDERED: fentaNYL 100 MCG/2 ML SDV IV ONE (14:05)
[2025-01-03] MEDS: Simethicone 80 MG Tab.Chew PO PRN (02:21)
[2025-01-03 08:48] VITALS: BP 108/59; PULSE 70
[2025-01-03] MEDS: Measles, Mumps & Rubella Vaccine 0.5 ML SDV SUBCUT ONE (09:47)
== END 2025-01-03 10:10 | disposition home or self-care (01) | DRG 807 ==
LOC: DL.OB 07:32 → OBSVTOIN 01-01 07:32
PROVIDERS: ADMIT Family Medicine; ATTEND Family Medicine
PROC: 10H07YZ Insertion of Other Device into Products of Conception, Via Natural or Artificial Opening (ICD-10-PCS; principal; 2025-01-01)
PROC: 3E0234Z Introduction of Serum, Toxoid and Vaccine into Muscle, Percutaneous Approach (ICD-10-PCS; principal; 2025-01-01)
PROC: 3E0R3BZ Introduction of Anesthetic Agent into Spinal Canal, Percutaneous Approach (ICD-10-PCS; principal; 2025-01-01)
PROC: 10E0XZZ Delivery of Products of Conception, External Approach (ICD-10-PCS; principal; 2025-01-01)
PROC: 0KQM0ZZ Repair Perineum Muscle, Open Approach (ICD-10-PCS; principal; 2025-01-01)
PROC: 3E0DXGC Introduction of Other Therapeutic Substance into Mouth and Pharynx, External Approach (ICD-10-PCS; principal; 2025-01-01)
PROC: 10907ZC Drainage of Amniotic Fluid, Therapeutic from Products of Conception, Via Natural or Artificial Opening (ICD-10-PCS; principal; 2025-01-01)
DX: O99.214 Obesity complicating childbirth (principal); Z37.0 Single live birth; O99.344 Other mental disorders complicating childbirth; O72.1 Other immediate postpartum hemorrhage; O70.1 Second degree perineal laceration during delivery; Z3A.39 39 weeks gestation of pregnancy; Z67.11 Type A blood, Rh negative; Z23 Encounter for immunization; Z88.0 Allergy status to penicillin; Z88.8 Allergy status to other drugs, medicaments and biological substances; Z90.49 Acquired absence of other specified parts of digestive tract; Z79.899 Other long term (current) drug therapy
CPT/HCPCS: 36415; 51702; 59409; 82570; 84156; 85027; 85461; 86850; 86900; 86901; 90471; 90707; A9270-GY; C1726; J2405; J2590; J2791; J3010; J7120

== ENCOUNTER 2025-01-21 00:18 | Emergency (ER) | payer OTHER ==
[2025-01-21 00:43] LABS: BASOPHILS PERCENT AUTO 0.2 % (0.0-1.0); EOSINOPHILS PERCENT AUTO 3.8 % (1.0-3.0); HEMATOCRIT 38.4 % (37.0-47.0); HEMOGLOBIN 12.6 g/dL (12.0-16.0); LYMPHOCYTES PERCENT AUTO 27.8 % (20.5-50.1); MEAN CORPUSCULAR HEMOGLOBIN 27.6 pg (27.0-34.0); MEAN CORPUSCULAR HGB CONC 32.8 g/dL (33.0-35.0); MEAN CORPUSCULAR VOLUME 84.2 fL (80-100); MONOCYTES PERCENT AUTO 5.8 % (2-8); NEUTROPHILS PERCENT AUTO 62.4 % (42.2-75.2); PLATELET COUNT,PLT 287 10^3/uL (150-450); RED BLOOD CELL COUNT 4.56 10^6/uL (4.2-5.4); WHITE BLOOD CELL COUNT,WBC 8.1 10^3/uL (5.0-10.0)
[2025-01-21] MEDS: Ketorolac 30 MG/ML SDV IVPUSH ONE (00:47)
[2025-01-21] MEDS: Sodium Chloride 0.9% 1,000 ML IV SCH (00:47)
[2025-01-21 01:02] LABS: ALBUMIN 3.3 g/dL (3.4-5.0); BILIRUBIN TOTAL 0.7 mg/dL (0.2-1.0); CALCIUM 9.7 mg/dL (8.5-10.1); CREATININE 1.08 mg/dL (0.55-1.02); EST CRCL DRUG DOSING (CG) 64.58 mL/min
[2025-01-21 01:07] LABS: A/G RATIO 0.89; ANION GAP 9.3 mEq/L (7-13); POTASSIUM,K 3.3 mmol/L (3.5-5.1)
[2025-01-21 01:50] LABS: APPEARANCE,URINE SLIGHTLY CLOUDY (CLEAR); BILIRUBIN,URINE NEGATIVE (NEGATIVE); COLOR,URINE YELLOW (YELLOW); GLUCOSE,URINE NEGATIVE (NEGATIVE); KETONES,URINE NEGATIVE (NEGATIVE); LEUKOCYTE ESTERASE,URINE MODERATE (NEGATIVE); NITRITE,URINE NEGATIVE (NEGATIVE); OCCULT BLOOD,URINE SMALL (NEGATIVE); PH,URINE 8.5 (5.0-9.0); PROTEIN,URINE NEGATIVE (NEGATIVE)
[2025-01-21] MEDS: fentaNYL 100 MCG/2 ML SDV IVPUSH ONE (01:55)
[2025-01-21 01:58] LABS: LACTATE DEHYDROGENASE,LDH 270 U/L (81-234); URIC ACID 4.6 mg/dL (2.6-6.0)
[2025-01-21 02:00] LABS: ETHANOL BLOOD MEDICAL < 3 mg/dL (0)
[2025-01-21 02:09] LABS: AMORPHOUS SEDIMENT,URINE MODERATE /HPF (NOT SEEN); BACTERIA,URINE MODERATE /HPF (0-FEW/HPF); EPITHELIAL CELLS,URINE FEW /HPF (NOT SEEN); MUCUS,URINE FEW /LPF (NOT SEEN)
[2025-01-21] MEDS: Iopamidol 612 MG/ML 100 ML Bottle IVPUSH ONE (02:26)
[2025-01-21 02:46] LABS: INR 0.9 (0.9-1.2); PROTHROMBIN TIME 9.5 SEC (9.0-12.0); PTT,PARTIAL THROMBOPLSTIN TIME 25.2 SEC (22.0-34.0)
[2025-01-21 03:37] VITALS: BP 107/73; PULSE 80
== END 2025-01-21 03:44 | disposition home or self-care (01) ==
LOC: DL.ED 00:18
DX: R10.11 Right upper quadrant pain (principal); R79.89 Other specified abnormal findings of blood chemistry; E66.9 Obesity, unspecified; Z88.0 Allergy status to penicillin; Z88.8 Allergy status to other drugs, medicaments and biological substances; Z79.899 Other long term (current) drug therapy; Z90.49 Acquired absence of other specified parts of digestive tract; Z68.42 Body mass index [BMI] 45.0-49.9, adult
CPT/HCPCS: 36415; 74177; 80053; 80307; 81001; 83615; 83735; 84550; 85025; 85384; 85610; 85730; 87086; 96361; 96374; 96375; 99284; J1885; J3010; J7030; Q9967